=== PATIENT | female | born 1985 | race Two or more races ===

== ENCOUNTER 2018-02-05 22:48 | Emergency (ER) | payer OTHER ==
--- NOTE | 2018-02-05 23:15 | ED PDOC ---
HPI: Female Pain Time Seen by Provider: 02/05/18 23:01 Chief Complaint (Nursing): Female Genitourinary Chief Complaint (Provider): ; vaginal spotting History Per: Patient History/Exam Limitations: no limitations Onset/Duration Of Symptoms: Days (3) Current Symptoms Are (Timing): Still Present Quality Of Discomfort: Cramping Additional Complaint(s): 32 y/o female, approximately 11 weeks gestation, presents for evaluation if vaginal spotting x 3 days. Denies fever, nausea/vomiting, chest pain, shortness of breath, palpitations, abdominal pain, urinary symptoms. has not received care thus far Abnormal Vaginal Bleeding: Yes Last Menstral Period: 11/13/17 : 10 Para: 5 Miscarriage: 4 Past Medical History Reviewed: Historical Data, Nursing Documentation, Vital Signs Vital Signs: Last Vital Signs Temp 98.8 F 02/05/18 22:52 Pulse 90 02/05/18 22:52 Resp 18 02/05/18 22:52 BP 133/90 02/05/18 22:52 Pulse Ox 100 02/05/18 22:52 - Medical History PMH: No Chronic Diseases - Surgical History Surgical History: No Surg Hx - Family History Family History: States: No Known Family Hx - Living Arrangements Living Arrangements: With Family - Home Medications Home Medications: Ambulatory Orders Medication Instructions Recorded Nitrofurantoin Macrocrystals 100 mg PO BID #14 cap 02/06/18 [Macrobid] - Allergies Allergies/Adverse Reactions: Allergies Allergy/AdvReac Type Severity Reaction Status Date / Time No Known Allergies Allergy Verified 02/05/18 22:57 Review of Systems ROS Statement: Except As Marked, All Systems Reviewed And Found Negative Genitourinary Female: Positive for: Vaginal Bleeding Physical Exam - Reviewed Nursing Documentation Reviewed: Yes Vital Signs Reviewed: Yes - Physical Exam Appears: Positive for: Well, Non-toxic, No Acute Distress Head Exam: Positive for: ATRAUMATIC, NORMAL INSPECTION, NORMOCEPHALIC Skin: Positive for: Normal Color Eye Exam: Positive for: Normal appearance ENT: Positive for: Normal ENT Inspection Cardiovascular/Chest: Positive for: Regular Rate, Rhythm Respiratory: Positive for: Normal Breath Sounds Gastrointestinal/Abdominal: Positive for: Bowel Sounds, Soft, Tenderness ( suprapubic, LLQ) Pelvic Exam: Positive for: Other (pelvic exam deffered) Back: Positive for: Normal Inspection Extremity: Positive for: Normal ROM - Laboratory Results Result Diagrams: 02/05/18 23:20 02/05/18 23:20 - ECG O2 Sat by Pulse Oximetry: 100 - Progress ED Course And Treament: labs, urine, ob TV u/s EXAM: US , Transvaginal EXAM DATE/TIME: 02/05/2018 11:17 PM CLINICAL HISTORY: 32 years old, female; Pain; complicated by abdominal or pelvic pain; Lower; First trimester; Gestational age or lmp: 11/13/2017; ; Additional info: Spotting, cramping TECHNIQUE: Real-time transvaginal obstetrical ultrasound of the maternal pelvis and a first trimester with image documentation. Transvaginal imaging was used for better evaluation of the fetus and adnexa. COMPARISON: No relevant prior studies available. FINDINGS: The uterus contains a gestational sac. A pole is identified. CRL (2.3 cm) correlates with a mean gestational age of 9 weeks and 2 days. Embryonic/ cardiac activity is not identified by the dredgemaster. Giving the size of the fetus (> 7 mm), visualization of the cardiac activity is expected. There is no evidence of significant subchorionic hemorrhage. The left ovary is normal. The right ovary is normal. There are no adnexal masses. There is no free pelvic fluid. IMPRESSION: Abnormal early OB ultrasound. Cardiac activity is not visualized by the dredgemaster in a fetus larger than 7 mm. This implies demise. Case discussed with Dr. Stein, Transmission Operator on-call; recommends patient to follow up with her Transmission Operator as outpatient Patient educated on findings, discharge with instructions to follow up with Ob/ Academic Advisement Director ((patient states she has appt scheduled for )) Rx macrobid given for UTI Return precautions given Patient demonstrates full understanding of discharge instructions. All questions answered Patient requires no further intervention in the ED and is stable for discharge at this time. Disposition - Clinical Impression Clinical Impression: Urinary tract infection, demise due to miscarriage - Patient ED Disposition Is Patient to be Admitted: No Counseled Patient/Family Regarding: Studies Performed, Diagnosis, Need For Followup, Rx Given - Disposition Disposition: Routine/Home Disposition Time: 01:32 Condition: IMPROVED Prescriptions: Nitrofurantoin Macrocrystals [Macrobid] 100 mg PO BID #14 cap Instructions: Urinary Tract Infections in Adults, Miscarriage Forms: [facility] (Italian)
[2018-02-05 23:44] LABS: BASO # 0.1 K/uL (0.0-0.2); BASO % 0.8 % (0.0-2.0); EOS # 0.3 K/uL (0.0-0.7); EOS % 4.4 % (0.0-4.0); HEMOGLOBIN 12.8 g/dL (12.0-16.0); LYMPH # 2.7 K/uL (1.0-4.3); LYMPH % 39.7 % (20.0-40.0); MEAN CELL VOLUME 91.3 fl (81.0-99.0); MEAN CORPUSCULAR HEMOGLOBIN 30.8 pg (27.0-31.0); MEAN CORPUSCULAR HGB CONC 33.8 g/dL (33.0-37.0); MEAN PLATELET VOLUME 7.9 fl (7.2-11.7); MONO # 0.5 K/uL (0.0-0.8); MONO % 7.1 % (0.0-10.0); NEUT # 3.3 K/uL (1.8-7.0); RBC 4.16 Mil/uL (3.80-5.20); RED CELL DISTRIBUTION WIDTH 12.9 % (11.5-14.5); WHITE BLOOD COUNT 6.8 K/uL (4.8-10.8)
[2018-02-05 23:46] LABS: SQUAMOUS EPITHIAL 2 /hpf (0-5); URINE AMORPHOUS SEDIMENT RARE /ul (<OCC); URINE BACTERIA OCC (<OCC); URINE BILIRUBIN NEGATIVE (NEGATIVE); URINE BLOOD SMALL (NEGATIVE); URINE CLARITY CLOUDY (Clear); URINE COLOR YELLOW (YELLOW); URINE GLUCOSE (UA) NEG (Normal); URINE LEUKOCYTE ESTERASE SMALL Leu/uL (Negative); URINE PROTEIN NEGATIVE (NEGATIVE); URINE UROBILINOGEN 0.2-1.0 mg/dL (0.2-1.0)
[2018-02-05 23:53] LABS: ALB/GLOB RATIO 1.5 (1.0-2.1); ALBUMIN 4.5 g/dL (3.5-5.0); ALT/SGPT 25 U/L (9-52); AST/SGOT 25 U/L (14-36); BLOOD UREA NITROGEN 13 mg/dl (7-17); CALCIUM 9.5 mg/dL (8.4-10.2); GFR NON-AFRICAN AMERICAN > 60
[2018-02-06 01:55] VITALS: BP 127/78; PULSE 76; RESP 16; TEMP 98.1; O2SAT 98
--- NOTE | 2018-02-06 09:00 | US ---
Date of service: 02/06/2018 PROCEDURE: OB Pelvic Ultrasound HISTORY: spotting, cramping LMP: COMPARISON: None available. TECHNIQUE: Real-time transvaginal ultrasound examination of the pelvis was performed. FINDINGS: UTERUS: Gestational sac: Single intrauterine gestation. Heart rate: bpm. No appreciable heart rate was identified. age (Ultrasound estimated): 9 weeks [place]-gestational hemorrhage: None. Date of delivery (Ultrasound estimated) : demise Uterus measures cm. Normal in size and appearance. Measures 11.4 x 8.6 x 8.0 cm. Normal in size and appearance. No fibroid or other mass lesion seen. CERVIX: Measures within normal limits cm. Long and closed. No cervical abnormality seen. RIGHT OVARY: Measures 2.4 x 2.7 x 2.1 cm. No mass lesion. Normal flow. LEFT OVARY: Measures 3.1 x 1.9 x 2.0 cm. No solid mass. Normal flow. FREE FLUID: None. OTHER FINDINGS: None. IMPRESSION: Abnormal ultrasound. No appreciable cardiac activity reported by the technologist performing the examination and on M-mode imaging. Imaging findings are consistent with demise. [place]-rump length is 22 millimeters corresponding with a 9 week gestation. This agrees with preliminary report provided by the on-call radiologist.
== END 2018-02-06 01:55 | disposition home or self-care (01) ==
LOC: H.ER 22:48
DX: O03.9 Complete or unspecified spontaneous abortion without complication (principal); O03.88 Urinary tract infection following complete or unspecified spontaneous abortion; Z3A.11 11 weeks gestation of pregnancy